=== PATIENT | female | born 1945 | race Caucasian/White ===

== ENCOUNTER 2021-10-07 09:55 | Outpatient (CLI) | payer MEDICARE | END 2021-10-07 09:56 | disposition home or self-care (01) | LOC: CSHMAMMO 09:55 | PROVIDERS: ATTEND Internal Medicine | DX: Z12.31 Encounter for screening mammogram for malignant neoplasm of breast (principal) | CPT/HCPCS: 77063; 77067 ==

== ENCOUNTER 2022-11-26 15:02 | Outpatient (CLI) | payer MEDICARE | END 2022-11-26 15:03 | disposition home or self-care (01) | LOC: CSHMAMMO 15:02 | PROVIDERS: ATTEND Internal Medicine | DX: Z12.31 Encounter for screening mammogram for malignant neoplasm of breast (principal); M81.0 Age-related osteoporosis without current pathological fracture; M85.851 Other specified disorders of bone density and structure, right thigh; M85.852 Other specified disorders of bone density and structure, left thigh | CPT/HCPCS: 77063; 77067; 77080 ==

== ENCOUNTER 2023-12-24 14:37 | Outpatient (CLI) | payer MEDICARE | END 2023-12-24 14:38 | disposition home or self-care (01) | LOC: CSHMAMMO 14:37 | PROVIDERS: ATTEND Internal Medicine | DX: Z12.31 Encounter for screening mammogram for malignant neoplasm of breast (principal) | CPT/HCPCS: 77063; 77067 ==

== ENCOUNTER 2025-02-22 10:31 | Outpatient (CLI) | payer MEDICARE | END 2025-02-22 10:32 | disposition home or self-care (01) | LOC: CSHMAMMO 10:31 | PROVIDERS: ATTEND Internal Medicine | DX: Z12.31 Encounter for screening mammogram for malignant neoplasm of breast (principal) | CPT/HCPCS: 77063; 77067 ==

== ENCOUNTER 2025-03-13 10:34 | Outpatient (CLI) | payer MEDICARE | END 2025-03-13 10:35 | disposition home or self-care (01) | LOC: CSHMRI 10:34 | PROVIDERS: ATTEND Orthopaedic Surgery | DX: M23.92 Unspecified internal derangement of left knee (principal); S83.522A Sprain of posterior cruciate ligament of left knee, initial encounter; M94.8X6 Other specified disorders of cartilage, lower leg ==